=== PATIENT | male | born 2000 | race Caucasian/White ===

== ENCOUNTER 2024-11-02 15:35 | Emergency (ER) | payer BC ==
[2024-11-02] MEDS ORDERED: levETIRAcetam 500 MG/5 ML SDV ONE (19:14)
== END 2024-11-02 17:04 | disposition home or self-care (01) ==
LOC: JD.ED 15:35
DX: K42.9 Umbilical hernia without obstruction or gangrene (principal)
CPT/HCPCS: 99283; 99284

== ENCOUNTER 2024-11-13 08:32 | Day surgery (SDC) | payer BC ==
[~2024-11-13 08:32] MED LIST: Dexamethasone 4 MG/ML 5 ML MDV ONE; Esmolol 100 MG/10 ML SDV ONE; Glycopyrrolate 0.2 MG/ML 2 ML SDV ONE; Ketamine 200 MG/20 ML MDV ONE; Lidocaine 1% 5 ML VIAL ONE; Midazolam 1 MG/ML 2 ML SDV ONE; Rocuronium 50 MG/5 ML Vial ONE; Sodium Chloride 0.9% 10 ML Syringe FLUSH PRN; Sodium Chloride 0.9% 10 ML Syringe FLUSH SCH; Sodium Chloride 0.9% 100 ML ONE; dexmedeTOMIDine HCl 200 MCG/2 ML SDV ONE; fentaNYL 250 MCG/5 ML SDV ONE; propofoL 500 MG/50 ML 50 ML ONE
[2024-11-13] MEDS ORDERED: Succinylcholine 200 MG/10 ML MDV ONE (08:41)
[2024-11-13] MEDS ORDERED: fentaNYL 100 MCG/2 ML SDV IVPUSH PRN (08:42)
[2024-11-13] MEDS ORDERED: HYDROmorphone 0.5 MG/0.5 ML Syringe IVPUSH PRN (08:42)
[2024-11-13] MEDS ORDERED: Ondansetron 4 MG/2 ML SDV IVPUSH PRN (08:42)
[2024-11-13] MEDS ORDERED: ceFAZolin 2 GM Vial ONE (08:43)
[2024-11-13] MEDS ORDERED: Phenylephrine 1% 10 MG/ML SDV ONE (08:51)
[2024-11-13] MEDS ORDERED: Sodium Chloride 0.9% 100 ML ONE (08:51)
[2024-11-13] MEDS ORDERED: Lactated Ringers 1,000 ML ONE (08:52)
[2024-11-13] MEDS ORDERED: Rocuronium 50 MG/5 ML Vial ONE (09:00)
[2024-11-13] MEDS ORDERED: Albuterol/Ipratropium 3.0-0.5 MG/3 ML Neb Soln NEB PRN (09:05)
[2024-11-13] MEDS ORDERED: propofoL 500 MG/50 ML 50 ML ONE (09:10)
[2024-11-13] MEDS: Albuterol/Ipratropium 3.0-0.5 MG/3 ML Neb Soln NEB ONE (09:16)
[2024-11-13] MEDS: Lactated Ringers 1,000 ML IV SCH (09:20)
[2024-11-13] MEDS ORDERED: Sugammadex Sodium 200 MG/2 ML VIAL IV ONE (09:21)
[2024-11-13] MEDS: Bupivacaine 0.5% 30 ML SDV ONE (09:58)
[2024-11-13] MEDS: EPINEPHrine 1 MG/ML SDV ONE (09:58)
== END 2024-11-13 11:45 | disposition home or self-care (01) ==
LOC: JD.LAB 08:32
PROVIDERS: ATTEND Surgery
DX: K42.9 Umbilical hernia without obstruction or gangrene (principal); F17.200 Nicotine dependence, unspecified, uncomplicated
CPT/HCPCS: 00790; A9270-GY; J0171; J0330; J0665; J0690; J1100; J1596; J1805; J2003; J2250; J2371; J2704; J3010; J3490; J7120